=== PATIENT | female | born 1970 | race Caucasian/White ===

== ENCOUNTER 2017-11-27 21:35 | Emergency (ER) | payer MEDICAID ==
[~2017-11-27] VITALS: Ht 157.5 cm; Wt 111.1 kg
[2017-11-27 21:44] VITALS: BP 147/84
== END 2017-11-28 01:13 | disposition left against medical advice (07) ==
LOC: ER 21:35
DX: K04.7 Periapical abscess without sinus (principal); Z53.21 Procedure and treatment not carried out due to patient leaving prior to being seen by health care provider

== ENCOUNTER 2022-04-01 06:56 | Emergency (ER) | payer MEDICAID ==
[~2022-04-01] VITALS: Ht 157.5 cm; Wt 122.5 kg
[2022-04-01 09:02] LABS: Urine Bacteria NONE SEEN /hpf (None Seen); Urine Blood 2+ /uL (Negative); Urine Specific Gravity 1.014 (1.001-1.035); Urine WBC 16 /hpf (0 - 5)
[2022-04-01] MEDS ORDERED: KETOROLAC TROMETH 60MG/2ML VIAL IM ONE (11:45)
[2022-04-01] MEDS ORDERED: CARI250T PO (14:16)
[2022-04-01] MEDS ORDERED: NITR-87 PO (14:17)
[2022-04-01 14:20] VITALS: BP 128/80
== END 2022-04-01 14:30 | disposition home or self-care (01) ==
LOC: ER 06:56
DX: S33.5XXA Sprain of ligaments of lumbar spine, initial encounter (principal); M79.10 Myalgia, unspecified site; N39.0 Urinary tract infection, site not specified; I10 Essential (primary) hypertension; Z79.899 Other long term (current) drug therapy; X58.XXXA Exposure to other specified factors, initial encounter; Y93.89 Activity, other specified; Y92.89 Other specified places as the place of occurrence of the external cause; Y99.8 Other external cause status
CPT/HCPCS: 72100; 81001; 96372; 99284; J1885